=== PATIENT | female | born 1960 ===

== ENCOUNTER 2019-01-21 08:57 | Emergency (ER) | payer SELFPAY ==
[2019-01-21] MEDS: IBUPROFEN 600 MG TAB PO (10:25)
[2019-01-21 10:54] LABS: ADD MAN DIFF? NO
[2019-01-21 10:55] LABS: BASOPHIL # 0.1 10^3/ul (0.0-0.1); BASOPHILS % 0.8 % (0.0-2.0); EOSINOPHILS # 0.2 10^3/ul (0.0-0.5); EOSINOPHILS % 2.8 % (0.0-7.0); HEMATOCRIT 48.2 % (37.0-47.0); HEMOGLOBIN 16.1 g/dl (12.0-16.0); LYMPHOCYTES # 1.4 10^3/ul (0.8-2.9); LYMPHOCYTES % 16.6 % (15.0-51.0); MEAN CORPUSCULAR HEMOGLOBIN 32.7 pg (29.0-33.0); MEAN CORPUSCULAR HGB CONC 33.4 g/dl (32.0-37.0); MEAN CORPUSCULAR VOLUME 97.8 fl (82.0-101.0); MEAN PLATELET VOLUME 10.4 fl (7.4-10.4); MONOCYTE # 0.5 10^3/ul (0.3-0.9); MONOCYTES % 5.5 % (0.0-11.0); NEUTROPHIL # 6.4 10^3/ul (1.6-7.5); PLATELET COUNT 278 10^3/UL (140-415); RED BLOOD COUNT 4.93 10^6/ul (4.20-5.40); RED CELL DISTRIBUTION WIDTH 11.7 % (11.5-14.5)
[2019-01-21 10:55] LABS: WHITE BLOOD COUNT 8.6 10^3/ul (4.8-10.8)
[2019-01-21 11:18] LABS: ALANINE AMINOTRANSFERASE 60 IU/L (13-69); ALBUMIN 4.9 g/dl (3.3-4.9); ALBUMIN/GLOBULIN RATIO 1.63; ALKALINE PHOSPHATASE 92 IU/L (42-121); ANION GAP 10 (5-13); ASPARTATE AMINO TRANSFERASE 38 IU/L (15-46); BILIRUBIN,INDIRECT 0.6 mg/dl (0-1.1); BILIRUBIN,TOTAL 0.6 mg/dl (0.2-1.3); BLOOD UREA NITROGEN 13 mg/dl (7-20); CALCIUM 9.8 mg/dl (8.4-10.2); CARBON DIOXIDE 29 mmol/L (21-31); CHLORIDE 102 mmol/L (97-110); CREATININE 0.72 mg/dl (0.44-1.00); Estimated GFR > 60 mL/min (>60); GLUCOSE 108 mg/dl (70-220); POTASSIUM 4.3 mmol/L (3.5-5.1); SODIUM 141 mmol/L (135-144); TOTAL PROTEIN 7.9 g/dl (6.1-8.1)
== END 2019-01-21 11:53 | disposition home or self-care (01) ==
LOC: FTE 08:57
DX: M25.532 Pain in left wrist (principal)
CPT/HCPCS: 73110; 73110-LT; 73130-LT; 80053; 85025; 93005; 99285-25